=== PATIENT | male | born 1965 | race African-American/Black ===

== ENCOUNTER 2023-04-07 08:58 | Observation (INO) | payer MEDICARE, OTHER ==
[2023-04-07] MEDS ORDERED: NITROGLYCERIN SL TABS 0.4 MG TAB SUBLINGUAL STA (09:15)
[2023-04-07] MEDS ORDERED: SODIUM CHLORIDE 0.9% 1,000 ML IV STA (09:24)
[2023-04-07 09:33] LABS: Basophils % (A) 0 %; Eosinophils # (A) 0.1 k/uL (0-0.7); Eosinophils % (A) 4 %; HCT 40.5 % (39.0-53.0); HGB 12.9 gm/dL (13.0-17.5); Lymphocytes % (A) 33 %; MCH 27.4 pg (25.0-35.0); MCHC 31.9 g/dL (31.0-37.0); Mean Platelet Volume 8.9; Monocytes # (A) 0.2 k/uL (0-1.0); Monocytes % (A) 5 %; Neutrophils # (A) 1.7 k/uL (1.3-7.7); Neutrophils % (A) 55 %; Platelet Count 176 k/uL (150-450); RBC 4.71 m/uL (4.30-5.90); RDW 15.1 % (11.5-15.5); WBC 3.1 k/uL (3.8-10.6)
--- NOTE | 2023-04-07 09:35 | XR ---
EXAMINATION TYPE: XR chest 2V DATE OF EXAM: 04/07/2023 COMPARISON: NONE HISTORY: Shortness of breath TECHNIQUE: Frontal and lateral views of the chest are obtained. FINDINGS: Scattered senescent parenchymal changes noted. Hyperinflation compatible with COPD. No evidence for infiltrate. No evidence for atelectasis. Heart size is stable. Mediastinal structures are stable and grossly unremarkable. No evidence for hilar prominence. Degenerative changes dorsal spine. IMPRESSION: 1. No evidence for acute pulmonary disease.
--- NOTE | 2023-04-07 09:41 | ED ---
General Adult HPI - General Chief complaint: Chest Pain Stated complaint: Chest Pains Time Seen by Provider: 04/07/23 09:09 Source: patient, EMS, RN notes reviewed, old records reviewed Mode of arrival: EMS Limitations: no limitations - History of Present Illness Initial comments: Patient is a 57-year-old male with past medical history remarkable for coronary bypass presents emergency Department complaining of chest pain. Presents from [place]. Has a history of cocaine abuse, states he smokes it. States that this morning he woke up and had left-sided chest pain with radiation towards his left shoulder. Denies any nausea or vomiting. Denies any lightheadedness. EMS was called and he was administered aspirin as well as 2 nitroglycerin tablets without much improvement. States he had a stress test within the last year but is uncertain the results. Denies any other acute complaints at this time. States he is compliant with medications. Does take aspirin and Plavix. Presents for further evaluation at this time. - Related Data Home Medications Medication Instructions Recorded Confirmed Albuterol Inhaler [Ventolin Hfa 2 puff INHALATION RT-QID PRN 04/07/23 04/07/23 Inhaler] Ammonium Lactate Lotion 1 applic TOPICAL BID 04/07/23 04/07/23 [Lac-Hydrin 12% Lotion] Aspirin EC [Ecotrin] 325 mg PO ONCE PRN 04/07/23 04/07/23 Atorvastatin Calcium [Lipitor] 40 mg PO HS 04/07/23 04/07/23 Clopidogrel [Plavix] 75 mg PO DAILY 04/07/23 04/07/23 Empagliflozin [Jardiance] 10 mg PO DAILY 04/07/23 04/07/23 Famotidine 20 mg PO BID 04/07/23 04/07/23 Fluticasone/Vilanterol [Breo 1 puff INHALATION RT-DAILY 04/07/23 04/07/23 Ellipta 100-25 Mcg Inhaler] Insulin Glargine,Hum.rec.anlog 8 units SQ HS 04/07/23 04/07/23 [Lantus Solostar Pen] Losartan Potassium 100 mg PO DAILY 04/07/23 04/07/23 Nitroglycerin Sl Tabs [Nitrostat] 0.4 mg SUBLINGUAL ONCE PRN 04/07/23 04/07/23 Rivaroxaban [Xarelto] 20 mg PO DAILY 04/07/23 04/07/23 amLODIPine [Norvasc] 10 mg PO DAILY 04/07/23 04/07/23 carvediloL [Coreg] 3.125 mg PO BID-W/MEALS 04/07/23 04/07/23 Allergies Allergy/AdvReac Type Severity Reaction Status Date / Time No Known Allergies Allergy Verified 04/07/23 10:36 Review of Systems ROS Statement: Those systems with pertinent positive or pertinent negative responses have been documented in the HPI. Review of Systems: CONST: Denies fever EYES: Denies blurry vision ENT: Denies nasal congestion C/V: Endorses Chest pain RESP: Denies shortness of breath GI: Denies abdominal pain : Denies dysuria SKIN: Denies rash. MSK: Denies joint pain. NEURO: Denies headache ROS Other: All systems not noted in ROS Statement are negative. Past Medical History Past Medical History: Hyperlipidemia, Hypertension, Myocardial Infarction (SD), Renal Disease Additional Past Medical History / Comment(s): CKD stage 3 History of Any Multi-Drug Resistant Organisms: None Reported Past Surgical History: Orthopedic Surgery Additional Past Surgical History / Comment(s): triple bipass 11/30/2021 Past Psychological History: ADD/ADHD, Anxiety, Bipolar, Depression Smoking Status: Former smoker Past Alcohol Use History: Occasional Past Drug Use History: Cocaine, Marijuana General Exam - General Exam Comments Initial Comments: General: Appears in no acute distress. HEAD: Normal with no signs of head trauma. EYES: PERRLA, EOMI, conjunctiva normal, no discharge. ENT: Hearing grossly intact, normal oropharynx. RESPIRATORY: Clear breath sounds bilaterally. No wheezes, rales, or rhonchi. C/V: Regular rate and rhythm. S1 and S2 auscultated, no edema, peripheral pulses 2+ and intact throughout ABD: Abd is soft, nontender, nondistended EXT: Normal range of motion, no obvious deformity SKIN: No rashes or lesions observed on exposed skin. NEURO: Alert and oriented x 4. Limitations: no limitations Course Vital Signs 04/07/23 04/07/23 04/07/23 09:00 10:30 11:30 Temperature 97.8 F Pulse Rate 56 L 58 L 58 L Respiratory 18 15 14 Rate Blood Pressure 111/74 127/81 114/54 O2 Sat by Pulse 96 97 98 Oximetry 04/07/23 13:05 Temperature Pulse Rate 58 L Respiratory 18 Rate Blood Pressure 141/84 O2 Sat by Pulse 97 Oximetry Medical Decision Making - Medical Decision Making Was pt. sent in by a medical professional or institution (, [facility], HPLC CHEMIST, urgent care, hospital, or [facility]...) When possible be specific @ -No Did you speak to anyone other than the patient for history (EMS, parent, family, police, friend...)? What history was obtained from this source @ -No Did you review nursing and triage notes (agree or disagree)? Why? @ -I reviewed and agree with nursing and triage notes Were old charts reviewed (outside hosp., previous admission, EMS record, old EKG, old radiological studies, urgent care reports/EKG's, [facility] records)? Report findings @ -No old charts were reviewed Differential Diagnosis (chest pain, altered mental status, abdominal pain women, abdominal pain men, vaginal bleeding, weakness, fever, dyspnea, syncope, headache, dizziness, GI bleed, back pain, seizure, CVA, palpatations, mental health, musculoskeletal)? @ -Differential Chest Pain: Stable Angina, Unstable Angina, STEMI, NSTEMI Aortic Dissection, Pneumothorax, Musculoskeletal, Esophageal Spasm GERD, Cholecystitis, Pancreatitis, Zoster, this is not meant to be an all-inclusive list. EKG interpreted by me (3pts min.). @ -As above X-rays interpreted by me (1pt min.). @ -Chest x-ray reveals no obvious of acute cardiopulmonary process. CT interpreted by me (1pt min.). @ -None done U/S interpreted by me (1pt. min.). @ -None done What testing was considered but not performed or refused? (CT, X-rays, U/S, labs)? Why? @ -None What meds were considered but not given or refused? Why? @ -None Did you discuss the management of the patient with other professionals (professionals i.e. [facility] Ovalles, HPLC CHEMIST, lab, RT, psych nurse, manager social work, tin stacker, teacher, chief analytics officer, watch caser)? Give summary @ -I spoke with the admitting team, Brittany of [facility] who accepted the patient. Was smoking cessation discussed for >3mins.? @ -No Was critical care preformed (if so, how long)? @ -No Were there social determinants of health that impacted care today? How? (Homelessness, low income, unemployed, alcoholism, drug addiction, transportation, low edu. Level, literacy, decrease access to med. care, senior living, rehab)? @ -No Was there de-escalation of care discussed even if they declined (Discuss DNR or withdrawal of care, Hospice)? DNR status @ -No What co-morbidities impacted this encounter? (DM, HTN, Smoking, COPD, CAD, Cancer, CVA, ARF, Chemo, Hep., AIDS, mental health diagnosis, sleep apnea, morbid obesity)? @ -None Was patient admitted / discharged? Hospital course, mention meds given and route, prescriptions, significant lab abnormalities, going to OR and other pertinent info. @ -Based on the patient's presentation and physical exam, presents for left- sided chest pain. Does have significant cardiac history of coronary bypass. We will obtain cardiac labs. He already received 2 sublingual nitroglycerin tablets and we will administer 2 additional to assess for any improvement. Patient already received 324 mg of aspirin from EMS. Vital signs are within acceptable limits. He is resting comfortably. Patient in agreement this plan. EKG showed no signs of acute ischemia. Chest x-ray reveals no obvious acute cardio pulmonary process.His laboratory studies remarkable for an undetectable troponin. Reevaluation, nitroglycerin did nothing for his chest pain. We'll administer morphine. Morphine did seem to help. I discussed his workup with him. Hipolito tineo's heart score is moderate and therefore we will obtain a cardiac consult, admit the patient for further evaluation. He was in agreement this plan. I spoke with the admitting team, Brittany of [facility] who accepted the patient. Undiagnosed new problem with uncertain prognosis? @ -No Drug Therapy requiring intensive monitoring for toxicity (Heparin, Nitro, Insulin, Cardizem)? @ -No Were any procedures done? @ -No Diagnosis/symptom? @ -Chest pain Acute, or Chronic, or Acute on Chronic? @ -Acute Uncomplicated (without systemic symptoms) or Complicated (systemic symptoms)? @ -Complicated Side effects of treatment? @ -none Exacerbation, Progression, or Severe Exacerbation] @ -no Poses a threat to life or bodily function? @ -Potentially, yes - Lab Data Result diagrams: 04/07/23 09:17 12/14/23 09:17 Lab Results 04/07/23 04/07/23 04/07/23 Range/Units 09:17 09:17 09:17 WBC 3.1 L (3.8-10.6) k/uL RBC 4.71 (4.30-5.90) m/uL Hgb 12.9 L (13.0-17.5) gm/dL Hct 40.5 (39.0-53.0) % MCV 86.0 (80.0-100.0) fL MCH 27.4 (25.0-35.0) pg MCHC 31.9 (31.0-37.0) g/dL RDW 15.1 (11.5-15.5) % Plt Count 176 (150-450) k/uL MPV 8.9 Neutrophils % 55 % Lymphocytes % 33 % Monocytes % 5 % Eosinophils % 4 % Basophils % 0 % Neutrophils # 1.7 (1.3-7.7) k/uL Lymphocytes # 1.0 (1.0-4.8) k/uL Monocytes # 0.2 (0-1.0) k/uL Eosinophils # 0.1 (0-0.7) k/uL Basophils # 0.0 (0-0.2) k/uL PT 11.8 (10.0-12.5) sec INR 1.1 (<1.2) APTT 28.6 (22.0-30.0) sec Sodium 138 (137-145) mmol/L Potassium 4.0 (3.5-5.1) mmol/L Chloride 102 (98-107) mmol/L Carbon Dioxide 26 (22-30) mmol/L Anion Gap 10 mmol/L BUN 12 (9-20) mg/dL Creatinine 0.98 (0.66-1.25) mg/dL Est GFR (CKD-EPI)AfAm >90 (>60 ml/min/1.73 sqM) Est GFR (CKD-EPI)NonAf 87 (>60 ml/min/1.73 sqM) Glucose 146 H (74-99) mg/dL Calcium 9.4 (8.4-10.2) mg/dL Magnesium 2.0 (1.6-2.3) mg/dL Total Bilirubin 0.4 (0.2-1.3) mg/dL AST 22 (17-59) U/L ALT 24 (4-49) U/L Alkaline Phosphatase 72 (38-126) U/L Troponin I (0.000-0.034) ng/mL Total Protein 6.7 (6.3-8.2) g/dL Albumin 3.8 (3.5-5.0) g/dL Lipase 211 (23-300) U/L 04/07/23 Range/Units 09:17 WBC (3.8-10.6) k/uL RBC (4.30-5.90) m/uL Hgb (13.0-17.5) gm/dL Hct (39.0-53.0) % MCV (80.0-100.0) fL MCH (25.0-35.0) pg MCHC (31.0-37.0) g/dL RDW (11.5-15.5) % Plt Count (150-450) k/uL MPV Neutrophils % % Lymphocytes % % Monocytes % % Eosinophils % % Basophils % % Neutrophils # (1.3-7.7) k/uL Lymphocytes # (1.0-4.8) k/uL Monocytes # (0-1.0) k/uL Eosinophils # (0-0.7) k/uL Basophils # (0-0.2) k/uL PT (10.0-12.5) sec INR (<1.2) APTT (22.0-30.0) sec Sodium (137-145) mmol/L Potassium (3.5-5.1) mmol/L Chloride (98-107) mmol/L Carbon Dioxide (22-30) mmol/L Anion Gap mmol/L BUN (9-20) mg/dL Creatinine (0.66-1.25) mg/dL Est GFR (CKD-EPI)AfAm (>60 ml/min/1.73 sqM) Est GFR (CKD-EPI)NonAf (>60 ml/min/1.73 sqM) Glucose (74-99) mg/dL Calcium (8.4-10.2) mg/dL Magnesium (1.6-2.3) mg/dL Total Bilirubin (0.2-1.3) mg/dL AST (17-59) U/L ALT (4-49) U/L Alkaline Phosphatase (38-126) U/L Troponin I <0.012 (0.000-0.034) ng/mL Total Protein (6.3-8.2) g/dL Albumin (3.5-5.0) g/dL Lipase (23-300) U/L - EKG Data -: EKG Interpreted by Me EKG Comments: 12-lead Electrocardiogram Interpretation Note EKG was reviewed and interpreted by myself. 12-lead ECG performed at 090 to is interpreted by me as revealing sinus bradycardia at a rate of 57 beats per minute. [place] is normal. IN interval is 166 ms, QRS duration is 94 ms, QTc is 435 ms.. There were no ST or T wave abnormalities to suggest myocardial ischemia or injury. R wave progression across the precordium was satisfactory. By my interpretation this EKG is non-diagnostic for acute ischemia. No prior EKG for comparison. Disposition Clinical Impression: Chest pain Disposition: ADMITTED IP TO THIS HOSP Condition: Stable Time of Disposition: 10:42
[2023-04-07 10:04] LABS: INR 1.1 (<1.2); Partial Thromboplastin Time 28.6 sec (22.0-30.0); Prothrombin Time 11.8 sec (10.0-12.5)
[2023-04-07] MEDS ORDERED: MORPHINE SULFATE 4 MG/ML SYRINGE IVP STA (10:05)
[2023-04-07 10:22] LABS: ALT 24 U/L (4-49); AST 22 U/L (17-59); African American GFR (CKD) >90 (>60 ml/min/1.73 sqM); Albumin 3.8 g/dL (3.5-5.0); Alkaline Phosphatase 72 U/L (38-126); Anion Gap 10 mmol/L; Blood Urea Nitrogen 12 mg/dL (9-20); Calcium 9.4 mg/dL (8.4-10.2); Carbon Dioxide 26 mmol/L (22-30); Chloride 102 mmol/L (98-107); Glucose 146 mg/dL (74-99); Lipase 211 U/L (23-300); Non-African American GFR(CKD) 87 (>60 ml/min/1.73 sqM); Sodium 138 mmol/L (137-145); Total Bilirubin 0.4 mg/dL (0.2-1.3); Total Protein 6.7 g/dL (6.3-8.2)
[2023-04-07] MEDS ORDERED: NALOXONE 0.4 MG/ML 1 ML VIAL IV PRN (10:54)
[2023-04-07] MEDS ORDERED: MORPHINE SULFATE 4 MG/ML SYRINGE IV PRN (10:54)
[2023-04-07] MEDS ORDERED: ALBUTEROL NEBULIZED 2.5 MG/3 ML INHALATION PRN (11:45)
[2023-04-07] MEDS ORDERED: NITROGLYCERIN SL TABS 0.4 MG TAB SUBLINGUAL PRN (11:45)
[2023-04-07] MEDS ORDERED: HEPARIN SODIUM 1,000 UN/ML (10ML VL) IV ONE (11:47)
--- NOTE | 2023-04-07 11:58 | P.HPIM ---
History of Present Illness 56-year-old pleasant male came in the with complaints of chest pain radiating to the left arm and neck area. Patient does have history of cocaine abuse last cocaine use was 2 days ago but patient started having chest pain today morning. Patient was is coming from [facility]. Patient does have history of coronary artery disease CABG in the past stents 3 times in the past recent one less than 1 year ago. Patient does have history of atrial fibrillation on 0 alto as per the patient patient does have history of heart failure denied any shortness of breath, orthopnea proximal nocturnal dyspnea. Patient was given as pirin and nitroglycerin with the some improvement in the pain patient pain is exertional associated lightheadedness denied any diaphoresis not associated with food nonpleuritic in nature. Patient is supposed to get a stress test at [facility] where his K was none of the records are available in the system at this time. EKG showed a sinus rhythm with nonspecific ST-T wave changes. 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 REVIEW OF SYSTEMS: CONSTITUTIONAL: No fever, no malaise, no fatigue. HEENT: No recent visual problems or hearing problems. Denied any sore throat. CARDIOVASCULAR: No orthopnea, PND, no palpitations, no syncope. PULMONARY: No shortness of breath, no cough, no hemoptysis. GASTROINTESTINAL: No diarrhea, no nausea, no vomiting, no abdominal pain. NEUROLOGICAL: No headaches, no weakness, no numbness. HEMATOLOGICAL: Denies any bleeding or petechiae. GENITOURINARY: Denies any burning micturition, frequency, or urgency. MUSCULOSKELETAL/RHEUMATOLOGICAL: Denies any joint pain, swelling, or any muscle pain. ENDOCRINE: Denies any polyuria or polydipsia. The rest of the 14-point review of systems is negative. PHYSICAL EXAMINATION: GENERAL: The patient is alert and oriented x3, not in any acute distress. Well developed, well nourished. HEENT: Pupils are round and equally reacting to light. EOMI. No scleral icterus. No conjunctival pallor. Normocephalic, atraumatic. No pharyngeal erythema. No thyromegaly. CARDIOVASCULAR: S1 and S2 present. No murmurs, rubs, or gallops. PULMONARY: Chest is clear to auscultation, no wheezing or crackles. ABDOMEN: Soft, nontender, nondistended, normoactive bowel sounds. No palpable organomegaly. MUSCULOSKELETAL: No joint swelling or deformity. EXTREMITIES: No cyanosis, clubbing, or pedal edema. NEUROLOGICAL: Gross neurological examination did not reveal any focal deficits. SKIN: No rashes. Assessment and plan -Chest pain possibly of unstable angina. Repeat 2 more sets of troponins and EKGs etiology will evaluate the patient patient probably will need a stress test -History of coronary artery disease and CABG in the past patient will be resumed on Plavix patient will be switched to IV heparin, hold off Xarelto. -History of congestive heart failure ejection fraction is not known patient is euvolemic at this time will hold off any IV fluids at this time -Atrial fibrillation proximal presently sinus rhythm next line-cocaine use patient wanted to quit cocaine and didn't use cocaine for last couple days cocaine may not be contributing to his chest pain will obtain urine drug screen -Hypertension DVT prophylaxis: Patient is on IV heparin at this time Past Medical History Past Medical History: Hyperlipidemia, Hypertension, Myocardial Infarction (CT), Renal Disease Additional Past Medical History / Comment(s): CKD stage 3 History of Any Multi-Drug Resistant Organisms: None Reported Past Surgical History: Orthopedic Surgery Additional Past Surgical History / Comment(s): triple bipass 11/30/2021 Past Psychological History: ADD/ADHD, Anxiety, Bipolar, Depression Smoking Status: Former smoker Past Alcohol Use History: Occasional Past Drug Use History: Cocaine, Marijuana Medications and Allergies Home Medications Medication Instructions Recorded Confirmed Type Albuterol Inhaler [Ventolin Hfa 2 puff INHALATION RT-QID PRN 04/07/23 04/07/23 History Inhaler] Ammonium Lactate Lotion 1 applic TOPICAL BID 04/07/23 04/07/23 History [Lac-Hydrin 12% Lotion] Aspirin EC [Ecotrin] 325 mg PO ONCE PRN 04/07/23 04/07/23 History Atorvastatin Calcium [Lipitor] 40 mg PO HS 04/07/23 04/07/23 History Clopidogrel [Plavix] 75 mg PO DAILY 04/07/23 04/07/23 History Empagliflozin [Jardiance] 10 mg PO DAILY 04/07/23 04/07/23 History Famotidine 20 mg PO BID 04/07/23 04/07/23 History Fluticasone/Vilanterol [Breo 1 puff INHALATION RT-DAILY 04/07/23 04/07/23 History Ellipta 100-25 Mcg Inhaler] Insulin Glargine,Hum.rec.anlog 8 units SQ HS 04/07/23 04/07/23 History [Lantus Solostar Pen] Losartan Potassium 100 mg PO DAILY 04/07/23 04/07/23 History Nitroglycerin Sl Tabs [Nitrostat] 0.4 mg SUBLINGUAL ONCE PRN 04/07/23 04/07/23 History Rivaroxaban [Xarelto] 20 mg PO DAILY 04/07/23 04/07/23 History amLODIPine [Norvasc] 10 mg PO DAILY 04/07/23 04/07/23 History carvediloL [Coreg] 3.125 mg PO BID-W/MEALS 04/07/23 04/07/23 History Allergies Allergy/AdvReac Type Severity Reaction Status Date / Time No Known Allergies Allergy Verified 04/07/23 10:36 Physical Exam Vitals: Vital Signs Temp Pulse Resp BP Pulse Ox 04/07/23 11:30 58 L 14 114/54 98 04/07/23 10:30 58 L 15 127/81 97 04/07/23 09:00 97.8 F 56 L 18 111/74 96 Intake and Output 04/06/23 04/07/23 04/07/23 22:59 06:59 14:59 Other: Weight 97.069 kg Results CBC & Chem 7: 04/07/23 09:17 04/07/23 09:17 Labs: Abnormal Lab Results - Last 24 Hours (Table) 04/07/23 04/07/23 Range/Units 09:17 09:17 WBC 3.1 L (3.8-10.6) k/uL Hgb 12.9 L (13.0-17.5) gm/dL Glucose 146 H (74-99) mg/dL
[2023-04-07] MEDS ORDERED: HEPARIN SOD,PORK IN 0.45% NACL 25,000 UNIT in 0.45% NACL 1 250ML.BAG IV SCH (12:00)
[2023-04-07 13:04] LABS: INR 1.1 (<1.2); Partial Thromboplastin Time 27.6 sec (22.0-30.0); Prothrombin Time 11.4 sec (10.0-12.5)
[2023-04-07] MEDS: CLOPIDOGREL 75 MG TAB PO SCH (13:08)
[2023-04-07] MEDS: carvediloL 3.125 MG TAB PO SCH ×2 (13:08→18:12)
[2023-04-07] MEDS: LOSARTAN 50 MG TAB PO SCH (14:40)
[2023-04-07] MEDS ORDERED: HEPARIN SODIUM,PORCINE 5,000 UNIT/ML 1 ML VIAL SQ SCH (16:00)
[2023-04-07] MEDS ORDERED: HEPARIN SODIUM 1,000 UN/ML (10ML VL) IV PRN (20:48)
[2023-04-07 20:59] LABS: Urine Alcohol Negative (Negative); Urine Barbiturate Negative (Negative); Urine Cocaine Negative (Negative); Urine Methadone Negative (Negative); Urine Opiates Positive (Negative); Urine Phencyclidine Negative (Negative)
[2023-04-07 21:12] LABS: Glucose,Whole Blood 113 mg/dL (70-110)
[2023-04-07] MEDS: FAMOTIDINE 20 MG TAB PO SCH (21:22)
[2023-04-07] MEDS: ATORVASTATIN 40 MG TAB PO SCH (21:22)
[2023-04-07] MEDS: INSULIN DETEMIR (LEVEMIR) 100 UNIT/ML SYR SQ SCH (21:27)
[2023-04-08 02:30] LABS: Basophils % (A) 1 %; Eosinophils # (A) 0.1 k/uL (0-0.7); Eosinophils % (A) 3 %; HCT 41.7 % (39.0-53.0); HGB 13.4 gm/dL (13.0-17.5); Lymphocytes # (A) 1.6 k/uL (1.0-4.8); Lymphocytes % (A) 44 %; MCH 27.7 pg (25.0-35.0); MCHC 32.2 g/dL (31.0-37.0); MCV 86.1 fL (80.0-100.0); Mean Platelet Volume 9.3; Monocytes # (A) 0.2 k/uL (0-1.0); Monocytes % (A) 7 %; Neutrophils # (A) 1.5 k/uL (1.3-7.7); Neutrophils % (A) 43 %; Platelet Count 179 k/uL (150-450); RBC 4.85 m/uL (4.30-5.90); RDW 15.2 % (11.5-15.5); WBC 3.6 k/uL (3.8-10.6)
[2023-04-08 02:44] LABS: INR 0.9 (<1.2); Prothrombin Time 10.4 sec (10.0-12.5)
[2023-04-08 03:16] LABS: African American GFR (CKD) 78 (>60 ml/min/1.73 sqM); Anion Gap 12 mmol/L; Blood Urea Nitrogen 14 mg/dL (9-20); Calcium 9.2 mg/dL (8.4-10.2); Carbon Dioxide 24 mmol/L (22-30); Chloride 101 mmol/L (98-107); Glucose 119 mg/dL (74-99); Non-African American GFR(CKD) 67 (>60 ml/min/1.73 sqM); Potassium 3.7 mmol/L (3.5-5.1); Sodium 137 mmol/L (137-145)
[2023-04-08 06:08] LABS: Glucose,Whole Blood 119 mg/dL (70-110)
[2023-04-08] MEDS: SYMBICORT 80-4.5 MCG INHALER INHALATION SCH ×2 (08:30→20:19)
[2023-04-08] MEDS ORDERED: NITROGLYCERIN OINT 1 INCH/GM PACKET TOPICAL STA (08:58)
[2023-04-08] MEDS ORDERED: amLODIPine 10 MG TAB PO SCH (09:00)
[2023-04-08] MEDS: LOSARTAN 50 MG TAB PO SCH (09:29)
[2023-04-08] MEDS: carvediloL 3.125 MG TAB PO SCH ×2 (09:30→18:07)
[2023-04-08] MEDS: CLOPIDOGREL 75 MG TAB PO SCH (09:30)
[2023-04-08] MEDS: FAMOTIDINE 20 MG TAB PO SCH ×2 (09:30→20:10)
[2023-04-08] MEDS: DAPAGLIFLOZIN PROPANEDIOL 5 MG TABLET PO SCH (09:39)
--- NOTE | 2023-04-08 10:23 | CA ---
Transthoracic Echo Report Name: Jaime Sosa Age: 57 Gender: M : 1965 Exam Date: 04/07/2023 16:09 Exam Location: [facility] Ht (in): 73 Wt (lb): 214 Ordering Physician: Nicola Garcia MD Attending/Referring Phys: Mold Runner Procedure CPT: Indications: Chest Pain Cardiac Hx: Technical Quality: Good Contrast 1: Total Dose (mL): Contrast 2: Total Dose (mL): MEASUREMENTS (Male / Female) Normal Values 2D ECHO LV Diastolic Diameter PLAX 5.1 cm 4.2 - 5.9 / 3.9 - 5.3 cm LV Systolic Diameter PLAX 3.8 cm IVS Diastolic Thickness 1.5 cm 0.6 - 1.0 / 0.6 - 0.9 cm LVPW Diastolic Thickness 1.6 cm 0.6 - 1.0 / 0.6 - 0.9 cm LV Relative Wall Thickness 0.6 RV Internal Dim ED PLAX 4.2 cm LVOT Diameter 2.1 cm Aortic Root Diameter 2.9 cm LA Systolic Diameter LX 3.2 cm 3.0 - 4.0 / 2.7 - 3.8 cm LV Diastolic Volume MOD 4C 97.2 cm??? LV Systolic Volume MOD 4C 40.0 cm??? LV Ejection Fraction MOD 4C 58.8 % LV Cardiac Index MOD 4C 1420.1 cm???/min???m??? LV Diastolic Length 4C 7.8 cm LV Systolic Length 4C 6.8 cm LA Volume 78.7 cm??? 18 - 58 / 22 - 52 cm??? LA Volume Index 34.9 cm???/m??? 16 - 28 cm???/m??? Ascending Aorta Diameter 3.0 cm DOPPLER AV Peak Velocity 150.7 cm/s AV Peak Gradient 9.1 mmHg AI Peak Velocity 141.8 cm/s AI Peak Gradient 8.0 mmHg AI Pressure Half Time 605.3 ms LVOT Peak Velocity 92.0 cm/s LVOT Peak Gradient 3.4 mmHg LVOT Velocity Time Integral 19.5 cm LVOT Stroke Volume 69.9 cm??? LVOT Stroke Volume Index 31.6 ml/m??? LVOT Cardiac Index 1738.4 cm???/min???m??? AV Area Cont Eq pk 2.2 cm??? MV Peak Velocity 66.5 cm/s MV Peak Gradient 1.8 mmHg MV Mean Velocity 30.5 cm/s MV Mean Gradient 0.5 mmHg MV Velocity Time Integral 28.2 cm MR Peak Velocity 445.8 cm/s MR Peak Gradient 79.5 mmHg Mitral E Point Velocity 84.2 cm/s Mitral A Point Velocity 55.6 cm/s Mitral E to A Ratio 1.5 MV Deceleration Time 310.3 ms MV E' Velocity 8.1 cm/s Mitral E to MV E' Ratio 10.4 TR Peak Velocity 184.8 cm/s TR Peak Gradient 13.7 mmHg Right Ventricular Systolic Press 19.0 mmHg PV Peak Velocity 122.9 cm/s PV Peak Gradient 6.0 mmHg FINDINGS Left Ventricle Moderately increased septal wall thickness. Normal LV size. Left ventricular ejection fraction is estimated at 55-60 %. Right Ventricle Normal right ventricular size. Right Atrium Mild LA dilatation Left Atrium Mild LA dilatation Mitral Valve Structurally normal mitral valve. Moderate MR. Aortic Valve Trileaflet aortic valve. Mild AI. Tricuspid Valve Structurally normal tricuspid valve. Trace TR. Pulmonic Valve Pulmonic valve not well visualized. Mild PI. Pericardium Normal pericardium. Aorta Normal size aortic root and proximal ascending aorta. CONCLUSIONS LVEF 55-60% Moderate concentric LVH No obvious regional wall motion abnormality RVSP is not elevated Mild biatrial dilatation Previewed by: Dr Alhaji Cuevas (Electronically Signed) Final Date: 08 April 2023 10:22
--- NOTE | 2023-04-08 11:36 | P.CRDCN ---
History of Present Illness Consult date: 04/08/23 Consult reason: chest pain History of present illness: History of present illness: This is a 57-year-old male with past medical history coronary artery disease with 3 vessel CABG in November 2021 followed by stenting done earlier this year for total of 4 stents--details are not available, hypertension, hyperlipidemia, paroxysmal atrial fibrillation, diabetes mellitus insulin requiring, cocaine abuse. We have been asked to evaluate patient for chest pain. Patient resides in [facility] and comes to [facility] from [place] [facility]. 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 Patient states he has problem with cocaine and admitted himself to [place] [facility]. His last cocaine use was 3 days ago and he denies having any chest pain with use. He has a history of tobacco use and quit. Patient presented with complaints of left-sided sharp chest pain that started yesterday and is constant. It is worse with deep breathing. He also states that most the back of his arm and the back of his neck. It is worse with movement as well. He also complains of cough and shortness of breath with lightheadedness and dizziness. He states he has been taking all of his medications as directed. Sinus rhythm with LVH Patient has been started on a heparin drip. EKG sinus rhythm with LVH Chest x-ray: No acute process WBC 3.6, hemoglobin 13.4. INR 0.9. Electrolytes and renal function normal. Blood sugar 119. Troponin negative 3. Urine drug screen positive for opiates. Home cardiac medications: Amlodipine 10 mg daily, aspirin 325 mg when necessary, atorvastatin 40 mg at bedtime, Coreg 3.125 mg twice daily, Plavix 75 mg daily, losartan 100 mg daily, Nitrostat as needed, Xarelto 20 mg daily, patient also on Jardiance 10 mg daily. Echocardiogram performed 04/07 reveals EF 55-60%, moderate concentric left hypertrophy, no obvious regional wall motion abnormality. RVSP not elevated, mild biatrial dilatation. Review Of Systems: At the time of my exam: CONSTITUTIONAL: Denies fever or chills. CARDIOVASCULAR: Denies chest pain, Denies shortness of breath, no orthopnea, PND or palpitations. RESPIRATORY: Denies cough. GASTROINTESTINAL: Denies abdominal pain, diarrhea, constipation, nausea or vomiting. MUSCULOSKELETAL: Denies myalgias. NEUROLOGIC: Denies numbness, tingling or weakness. ENDOCRINE: Denies fatigue, weight change, polydipsia or polyurina. GENITOURINARY: Denies burning, hematuria or urgency with micturation. HEMATOLOGIC: Denies history of anemia or bleeding. Physical examination: Gen: This is a 57-year-old black male resting in bed in no acute distress VS: reviewed HEENT: Head is atraumatic, normocephalic. Pupils equal, round. Sclerae is anicteric. NECK: Supple. No JVD. LUNGS: Clear to auscultation. No wheezes or rhonchi. No intercostal retractions. HEART: Regular rate and rhythm. Fixed S2. No murmur. ABDOMEN: Soft No tenderness. EXTREMITIES: No pedal edema. No calf tenderness. NEUROLOGICAL: Patient is awake, alert and oriented x3. Assessment: Chest pain, acute coronary syndrome ruled out Coronary artery disease status post 3 vessel CABG and 4 stents Hypertension Hyperlipidemia Paroxysmal atrial fibrillation Diabetes mellitus insulin requiring Cocaine abuse Plan: Continue patient's home cardiac medications Discontinue heparin drip Discontinue IV fluids Apply Nitropaste 1 and evaluate chest pain. The chest pain is resolved with Nitropaste, plan to start patient on him nor Obtain results of stress test performed last week Further recommendations to follow based upon clinical course Thank you kindly for this consultation. Nurse practitioner note has been reviewed, I agree with documented findings and plan of care. Patient was seen and examined. Past Medical History Past Medical History: Atrial Fibrillation, Asthma, Chest Pain / Angina, Heart Failure, Diabetes Mellitus, Deep Vein Thrombosis (DVT), GERD/Reflux, Hyperlipidemia, Hypertension, Myocardial Infarction ([place]), Renal Disease Additional Past Medical History / Comment(s): CKD stage 3,chf, left left dvt 2019. bronchitis,glaucoma Last Myocardial Infarction Date:: 10/2021 History of Any Multi-Drug Resistant Organisms: None Reported Past Surgical History: Heart Catheterization With Stent, Orthopedic Surgery Additional Past Surgical History / Comment(s): triple bipass 11/30/2021, heart cath with 4 stents 06/2022, left wrist sx. left achilles tendon, right shoulder sx. Past Anesthesia/Blood Transfusion Reactions: No Reported Reaction Date of Last Stent Placement:: 06/2022 Past Psychological History: ADD/ADHD, Anxiety, Bipolar, Depression Smoking Status: Former smoker Past Alcohol Use History: Occasional Past Drug Use History: Cocaine, Marijuana Additional Drug Use History / Comment(s): last heroin use was 3 years ago, cocaine use was 04/05/23, THc use 03/31/23 - Past Family History Father Family Medical History: Diabetes Mellitus Additional Family Medical History / Comment(s): heart problems Mother Family Medical History: Diabetes Mellitus Additional Family Medical History / Comment(s): heart problems Medications and Allergies Home Medications Medication Instructions Recorded Confirmed Type Albuterol Inhaler [Ventolin Hfa 2 puff INHALATION RT-QID PRN 04/07/23 04/07/23 History Inhaler] Ammonium Lactate Lotion 1 applic TOPICAL BID 04/07/23 04/07/23 History [Lac-Hydrin 12% Lotion] Aspirin EC [Ecotrin] 325 mg PO ONCE PRN 04/07/23 04/07/23 History Atorvastatin Calcium [Lipitor] 40 mg PO HS 04/07/23 04/07/23 History Clopidogrel [Plavix] 75 mg PO DAILY 04/07/23 04/07/23 History Empagliflozin [Jardiance] 10 mg PO DAILY 04/07/23 04/07/23 History Famotidine 20 mg PO BID 04/07/23 04/07/23 History Fluticasone/Vilanterol [Breo 1 puff INHALATION RT-DAILY 04/07/23 04/07/23 Hist ory Ellipta 100-25 Mcg Inhaler] Insulin Glargine,Hum.rec.anlog 8 units SQ HS 04/07/23 04/07/23 History [Lantus Solostar Pen] Losartan Potassium 100 mg PO DAILY 04/07/23 04/07/23 History Nitroglycerin Sl Tabs [Nitrostat] 0.4 mg SUBLINGUAL ONCE PRN 04/07/23 04/07/23 History Rivaroxaban [Xarelto] 20 mg PO DAILY 04/07/23 04/07/23 History amLODIPine [Norvasc] 10 mg PO DAILY 04/07/23 04/07/23 History carvediloL [Coreg] 3.125 mg PO BID-W/MEALS 04/07/23 04/07/23 History Allergies Allergy/AdvReac Type Severity Reaction Status Date / Time No Known Allergies Allergy Verified 04/07/23 10:36 Physical Exam Vitals: Vital Signs Temp Pulse Pulse Resp BP BP Pulse Ox 04/08/23 08:49 54 L 04/08/23 08:31 50 L 95 04/08/23 07:00 97.6 F 50 L 12 120/75 98 04/08/23 01:15 97.7 F 54 L 16 124/72 99 04/07/23 20:15 98.4 F 57 L 16 123/76 99 04/07/23 20:03 62 18 128/82 98 04/07/23 18:14 97.7 F 54 L 17 130/83 98 04/07/23 14:39 64 18 136/86 96 04/07/23 13:05 58 L 18 141/84 97 04/07/23 11:30 58 L 14 114/54 98 04/07/23 10:30 58 L 15 127/81 97 04/07/23 09:00 97.8 F 56 L 18 111/74 96 FiO2 04/08/23 08:49 04/08/23 08:31 21 04/08/23 07:00 04/08/23 01:15 04/07/23 20:15 04/07/23 20:03 04/07/23 18:14 04/07/23 14:39 04/07/23 13:05 04/07/23 11:30 04/07/23 10:30 04/07/23 09:00 Intake and Output 04/07/23 04/08/23 04/08/23 22:59 06:59 14:59 Intake Total 77.5 72.8 Output Total 750 Balance 77.5 -677.2 Intake: Intake, IV Titration 77.5 72.8 Amount Heparin Sod,Pork in 0.45% 77.5 72.8 NaCl 25,000 unit In 0.45 % NaCl 1 250ml.bag @ 10. 302 UNITS/KG/HR 10 mls/hr IV .Q24H [facility] Rx#: [id number] Output: Urine 750 Other: # Voids 1 Weight 97.069 kg Results 04/08/23 02:19 04/08/23 02:19 Cardiac Enzymes 04/07/23 04/07/23 04/07/23 Range/Units 09:17 09:17 11:39 AST 22 (17-59) U/L Troponin I <0.012 <0.012 (0.000-0.034) ng/mL 04/07/23 Range/Units 14:51 AST (17-59) U/L Troponin I <0.012 (0.000-0.034) ng/mL Coagulation 04/07/23 04/07/23 04/07/23 Range/Units 09:17 11:59 17:26 PT 11.8 11.4 (10.0-12.5) sec APTT 28.6 27.6 41.1 H (22.0-30.0) sec 04/07/23 04/08/23 04/08/23 Range/Units 20:03 02:19 02:19 PT 10.4 (10.0-12.5) sec APTT 34.4 H 58.4 H (22.0-30.0) sec CBC 04/07/23 04/08/23 Range/Units 09:17 02:19 WBC 3.1 L 3.6 L (3.8-10.6) k/uL RBC 4.71 4.85 (4.30-5.90) m/uL Hgb 12.9 L 13.4 (13.0-17.5) gm/dL Hct 40.5 41.7 (39.0-53.0) % Plt Count 176 179 (150-450) k/uL Comprehensive Metabolic Panel 04/07/23 04/08/23 Range/Units 09:17 02:19 Sodium 138 137 (137-145) mmol/L Potassium 4.0 3.7 (3.5-5.1) mmol/L Chloride 102 101 (98-107) mmol/L Carbon Dioxide 26 24 (22-30) mmol/L BUN 12 14 (9-20) mg/dL Creatinine 0.98 1.21 (0.66-1.25) mg/dL Glucose 146 H 119 H (74-99) mg/dL Calcium 9.4 9.2 (8.4-10.2) mg/dL AST 22 (17-59) U/L ALT 24 (4-49) U/L Alkaline Phosphatase 72 (38-126) U/L Total Protein 6.7 (6.3-8.2) g/dL Albumin 3.8 (3.5-5.0) g/dL Current Medications Generic Name Dose Route Start Last Admin Trade Name Freq PRN Reason Stop Dose Admin Albuterol Sulfate 2.5 mg 04/07/23 11:45 04/08/23 08:30 Albuterol Nebulized 2.5 Mg/3 Ml INHALATION 2.5 mg RT-QID PRN Administration Shortness Of Breath Atorvastatin Calcium 40 mg 04/07/23 21:00 04/07/23 21:22 Atorvastatin 40 Mg Tab PO 40 mg HS ANKUR Administration Budesonide/Formoterol Fumarate 2 puff 04/08/23 08:00 04/08/23 08:30 Symbicort 80-4.5 Mcg Inhaler INHALATION 2 puff RT-BID ANKUR Administration Carvedilol 3.125 mg 04/07/23 11:45 04/07/23 18:12 Carvedilol 3.125 Mg Tab PO 3.125 mg BID-W/MEALS ANKUR Administration Clopidogrel Bisulfate 75 mg 04/07/23 12:00 04/07/23 13:08 Clopidogrel 75 Mg Tab PO 75 mg DAILY ANKUR Administration Dapagliflozin 5 mg 04/08/23 09:00 Dapagliflozin Propanediol 5 Mg Tablet PO DAILY ANKUR Famotidine 20 mg 04/07/23 21:00 04/07/23 21:22 Famotidine 20 Mg Tab PO 20 mg BID ANKUR Administration Heparin Sodium (Porcine) 0 unit 04/07/23 20:48 04/07/23 21:00 Heparin Sodium 1,000 Un/Ml (10ml Vl) IV 4,000 unit PER PROTOCOL PRN Administration Low PTT Protocol Heparin Sodium/Sodium Chloride 250 mls @ 10 mls/hr 04/07/23 12:00 04/08/23 02:30 25,000 unit/ Sodium Chloride IV 13.39 units/kg/hr .Q24H [facility] 13 mls/hr Titration Protocol 10.302 UNITS/KG/HR Insulin Detemir 8 unit 04/07/23 21:00 04/07/23 21:27 Insulin Detemir (Levemir) 100 Unit/Ml Syr SQ 8 unit HS ANKUR Administration Losartan Potassium 100 mg 04/07/23 12:00 04/07/23 14:40 Losartan 50 Mg Tab PO 100 mg DAILY ANKUR Administration Morphine Sulfate 4 mg 04/07/23 10:54 Morphine Sulfate 4 Mg/Ml Syringe IV Q4HR PRN Severe Pain (Scale 7 to 10) Nitroglycerin 0.4 mg 04/07/23 11:45 Nitroglycerin Sl Tabs 0.4 Mg Tab SUBLINGUAL ONCE PRN Chest Pain Intake and Output 04/07/23 04/08/23 04/08/23 22:59 06:59 14:59 Intake Total 77.5 72.8 Output Total 750 Balance 77.5 -677.2 Intake: Intake, IV Titration 77.5 72.8 Amount Heparin Sod,Pork in 0.45% 77.5 72.8 NaCl 25,000 unit In 0.45 % NaCl 1 250ml.bag @ 10. 302 UNITS/KG/HR 10 mls/hr IV .Q24H [facility] Rx#: [id number] Output: Urine 750 Other: # Voids 1 Weight 97.069 kg 04/08/23 02:19 04/08/23 02:19
[2023-04-08 12:26] LABS: Glucose,Whole Blood 166 mg/dL (70-110)
[2023-04-08] MEDS: ISOSORBIDE MONONITRATE ER 30 MG TAB.ER.24H PO SCH (12:39)
[2023-04-08] MEDS: RIVAROXABAN 20 MG TAB PO SCH (13:34)
--- NOTE | 2023-04-08 16:06 | P.PN ---
Subjective Progress Note Date: 04/08/23 56-year-old pleasant male came in the with complaints of chest pain radiating to the left arm and neck area. Patient does have history of cocaine abuse last cocaine use was 2 days ago but patient started having chest pain today morning. Patient was is coming from [facility]. Patient does have history of coronary artery disease CABG in the past stents 3 times in the past recent one less than 1 year ago. Patient does have history of atrial fibrillation on 0 alto as per the patient patient does have history of heart failure denied any shortness of breath, orthopnea proximal nocturnal dyspnea. Patient was given aspirin and nitroglycerin with the some improvement in the pain patient pain is exertional associated lightheadedness denied any diaphoresis not associated with food nonpleuritic in nature. Patient is supposed to get a stress test at [facility] where his K was none of the records are available in the system at this time. EKG showed a sinus rhythm with nonspecific ST-T wave changes. 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 04/08/2023 Patient is evaluated today, continues to report mild left sided chest pain and radiation into the back shoulder blade. Cardiology is pending reports [place] [facility] [place] with cardiology and had a stress test completed last week. Echocardiogram comes back with EF 55-60%, mild biatrial dilatation. Review of Systems Constitutional: Denied any fatigue denied any fever. Cardio vascular: denied any chest pain, palpitations Gastrointestinal: denied any nausea, vomiting, diarrhea Pulmonary: Denied any shortness of breath cough Neurologic denied any new focal deficits All inpatient medications were reviewed and appropriate changes in these medications as dictated in the interval history and assessment and plan. PHYSICAL EXAMINATION: GENERAL: The patient is alert and oriented x3, not in any acute distress. Well developed, well nourished. HEENT: Pupils are round and equally reacting to light. EOMI. No scleral icterus. No conjunctival pallor. Normocephalic, atraumatic. No pharyngeal erythema. No thyromegaly. CARDIOVASCULAR: S1 and S2 present. No murmurs, rubs, or gallops. PULMONARY: Chest is clear to auscultation, no wheezing or crackles. ABDOMEN: Soft, nontender, nondistended, normoactive bowel sounds. No palpable organomegaly. MUSCULOSKELETAL: No joint swelling or deformity. EXTREMITIES: No cyanosis, clubbing, or pedal edema. NEUROLOGICAL: Gross neurological examination did not reveal any focal deficits. SKIN: No rashes. Assessment and plan -Chest pain possibly of unstable angina. Troponin negative patient had stress test last week reports are being obtained. Cardiology has started the patient on nitropaste. -History of coronary artery disease and CABG in the past patient will be resumed on Plavix xarelto has been resumed off IV heparin. -History of congestive heart failure normal LV function -Atrial fibrillation proximal presently sinus rhythm -cocaine use patient wanted to quit cocaine and didn't use cocaine for last couple days cocaine may not be contributing to his chest pain -Hypertension -Diabetes Mellitus type resumed on home regimen with cele luis -Chronic kidney disease stage 3 -Hx of DVT -Hx of gastroesophageal reflux disease -Former history of smoking -Anxiety/Bipolar/Depression/Add DVT prophylaxis: Resumed on xarelto Full Code The impression and plan of care has been dictated by Blanche Villasenor Nurse Practitioner as directed. Dr. Walker MD I have performed a history and physical examination and medical decision making of this patient, discussed the same with the dictator, and agree with the dictators assessment and plan as written, documented as a scribe. Based on total visit time, I have performed more than 50% of this visit. Objective - Vital Signs Vital signs: Vital Signs Temp 97.6 F 04/08/23 07:00 Pulse 57 L 04/08/23 11:48 Resp 16 04/08/23 11:48 BP 126/71 04/08/23 11:48 Pulse Ox 98 04/08/23 11:48 FiO2 21 04/08/23 08:31 Intake & Output 04/07/23 04/08/23 04/08/23 18:59 06:59 18:59 Intake Total 150.3 240 Output Total 750 Balance -599.7 240 Weight 97.069 kg 97.069 kg Intake: Intake, IV Titration 150.3 Amount Heparin Sod,Pork in 0.45% 150.3 NaCl 25,000 unit In 0.45 % NaCl 1 250ml.bag @ 10. 302 UNITS/KG/HR 10 mls/hr IV .Q24H [facility] Rx#: [id number] Oral 240 Output: Urine 750 Other: # Voids 1 - Labs CBC & Chem 7: 04/08/23 02:19 04/08/23 02:19 Labs: Abnormal Lab Results - Last 24 Hours (Table) 04/07/23 04/07/23 04/07/23 Range/Units 13:00 17:26 20:03 WBC (3.8-10.6) k/uL APTT 41.1 H 34.4 H (22.0-30.0) sec Glucose (74-99) mg/dL POC Glucose (mg/dL) (70-110) mg/dL Urine Opiates Screen Positive A (Negative) 04/07/23 04/08/23 04/08/23 Range/Units 21:11 02:19 02:19 WBC 3.6 L (3.8-10.6) k/uL APTT (22.0-30.0) sec Glucose 119 H (74-99) mg/dL POC Glucose (mg/dL) 113 H (70-110) mg/dL Urine Opiates Screen (Negative) 04/08/23 04/08/23 04/08/23 Range/Units 02:19 06:06 12:23 WBC (3.8-10.6) k/uL APTT 58.4 H (22.0-30.0) sec Glucose (74-99) mg/dL POC Glucose (mg/dL) 119 H 166 H (70-110) mg/dL Urine Opiates Screen (Negative) Assessment and Plan Time with Patient: Less than 30
[2023-04-08 17:35] LABS: Glucose,Whole Blood 109 mg/dL (70-110)
[2023-04-08] MEDS: ATORVASTATIN 40 MG TAB PO SCH (20:10)
[2023-04-08 20:47] LABS: Glucose,Whole Blood 206 mg/dL (70-110)
[2023-04-08] MEDS: INSULIN DETEMIR (LEVEMIR) 100 UNIT/ML SYR SQ SCH (21:29)
[2023-04-09] MEDS: carvediloL 3.125 MG TAB PO SCH ×2 (05:44→18:01)
[2023-04-09 05:50] LABS: Glucose,Whole Blood 114 mg/dL (70-110)
[2023-04-09] MEDS: SYMBICORT 80-4.5 MCG INHALER INHALATION SCH ×2 (08:36→18:29)
[2023-04-09] MEDS: CLOPIDOGREL 75 MG TAB PO SCH (08:54)
[2023-04-09] MEDS: ISOSORBIDE MONONITRATE ER 30 MG TAB.ER.24H PO SCH (08:54)
[2023-04-09] MEDS: FAMOTIDINE 20 MG TAB PO SCH ×2 (08:54→19:51)
[2023-04-09] MEDS: LOSARTAN 50 MG TAB PO SCH (08:55)
[2023-04-09] MEDS: DAPAGLIFLOZIN PROPANEDIOL 5 MG TABLET PO SCH (08:55)
[2023-04-09] MEDS ORDERED: ACETAMINOPHEN TAB 500 MG TAB PO STA (10:19)
[2023-04-09 12:19] LABS: Glucose,Whole Blood 126 mg/dL (70-110)
--- NOTE | 2023-04-09 13:02 | P.PN ---
Subjective Progress Note Date: 04/09/23 History of present illness: This is a 57-year-old male with past medical history coronary artery disease wi th 3 vessel CABG in November 2021 followed by stenting done earlier this year for total of 4 stents--details are not available, hypertension, hyperlipidemia, paroxysmal atrial fibrillation, diabetes mellitus insulin requiring, cocaine abuse. We have been asked to evaluate patient for chest pain. Patient resides in [facility] and comes to [facility] from [place] [facility]. 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 Patient states he has problem with cocaine and admitted himself to [place] [facility]. His last cocaine use was 3 days ago and he denies having any chest pain with use. He has a history of tobacco use and quit. Patient presented with complaints of left-sided sharp chest pain that started yesterday and is constant. It is worse with deep breathing. He also states that most back of his arm and the back of his neck. It is worse with movement as well. He also complains of cough and shortness of breath with lightheadedness and dizziness. He states he has been taking all of his medications as directed. EKG sinus rhythm with LVH Chest x-ray: No acute process WBC 3.6, hemoglobin 13.4. INR 0.9. Electrolytes and renal function normal. Blood sugar 119. Troponin negative 3. Urine drug screen positive for opiates. Home cardiac medications: Amlodipine 10 mg daily, aspirin 325 mg when necessary, atorvastatin 40 mg at bedtime, Coreg 3.125 mg twice daily, Plavix 75 mg daily, losartan 100 mg daily, Nitrostat as needed, Xarelto 20 mg daily, patient also on Jardiance 10 mg daily. Echocardiogram performed 04/07 reveals EF 55-60%, moderate concentric left hypertrophy, no obvious regional wall motion abnormality. RVSP not elevated, mild biatrial dilatation. 04/09/23 We did receive some reports however these were from 11/06/22 stress test which revealed normal myocardial perfusion study showing no inducible defects, no reversible ischemia noted. No other records available to review at this time. He does report that he is having intermittent chest pain while laying in bed, nothing makes it better or worse. He was started on Imdur and reports having a headache from this. Review Of Systems: At the time of my exam: CONSTITUTIONAL: Denies fever or chills. CARDIOVASCULAR: Denies chest pain, Denies shortness of breath, no orthopnea, PND or palpitations. RESPIRATORY: Denies cough. GASTROINTESTINAL: Denies abdominal pain, diarrhea, constipation, nausea or vom iting. MUSCULOSKELETAL: Denies myalgias. NEUROLOGIC: Denies numbness, tingling or weakness. ENDOCRINE: Denies fatigue, weight change, polydipsia or polyurina. GENITOURINARY: Denies burning, hematuria or urgency with micturation. HEMATOLOGIC: Denies history of anemia or bleeding. Physical examination: Gen: This is a 57-year-old black male resting in bed in no acute distress VS: reviewed HEENT: Head is atraumatic, normocephalic. Pupils equal, round. Sclerae is anicteric. NECK: Supple. No JVD. LUNGS: Clear to auscultation. No wheezes or rhonchi. No intercostal retractions. HEART: Regular rate and rhythm. Fixed S2. No murmur. ABDOMEN: Soft No tenderness. EXTREMITIES: No pedal edema. No calf tenderness. NEUROLOGICAL: Patient is awake, alert and oriented x3. Assessment: Chest pain, acute coronary syndrome ruled out Coronary artery disease status post 3 vessel CABG and 4 stents Hypertension Hyperlipidemia Paroxysmal atrial fibrillation Diabetes mellitus insulin requiring Cocaine abuse Plan: Reviewed reports available with negative stress test from October 2022. Obtain results of stress test performed last week. Recommend Tylenol for headache with Imdur. Continue with current regimen. Advised cessation of drug use. If patient remains chest pain free okay to discharge from a cardiology standpoint with outpatient follow-up in 1-2 weeks. Nurse practitioner note has been reviewed, I agree with documented findings and plan of care. Patient was seen and examined. Objective - Vital Signs Vital signs: Vital Signs Temp 97.9 F 04/09/23 07:00 Pulse 61 04/09/23 07:00 Resp 16 04/09/23 07:00 BP 132/73 04/09/23 07:00 Pulse Ox 97 04/09/23 08:38 FiO2 21 04/08/23 08:31 Intake & Output 04/08/23 04/09/23 04/09/23 18:59 06:59 18:59 Intake Total 598 Output Total 650 500 Balance -52 -500 Intake: Oral 598 Output: Urine 650 500 Other: Voiding Method Toilet Urinal # Voids 2 - Labs CBC & Chem 7: 04/08/23 02:19 04/08/23 02:19 Labs: Abnormal Lab Results - Last 24 Hours (Table) 04/08/23 04/09/23 04/09/23 Range/Units 20:45 05:47 12:18 POC Glucose (mg/dL) 206 H 114 H 126 H (70-110) mg/dL
[2023-04-09 17:32] LABS: Glucose,Whole Blood 110 mg/dL (70-110)
[2023-04-09] MEDS: RIVAROXABAN 20 MG TAB PO SCH (18:01)
[2023-04-09] MEDS: ATORVASTATIN 40 MG TAB PO SCH (19:51)
[2023-04-09 20:31] LABS: Glucose,Whole Blood 171 mg/dL (70-110)
[2023-04-09] MEDS: INSULIN DETEMIR (LEVEMIR) 100 UNIT/ML SYR SQ SCH (20:31)
[2023-04-10 07:24] LABS: Glucose,Whole Blood 97 mg/dL (70-110)
[2023-04-10 08:11] VITALS: BP 110/68; PULSE 51; RESP 18; TEMP 97.7
[2023-04-10] MEDS: carvediloL 3.125 MG TAB PO SCH (08:35)
[2023-04-10] MEDS: LOSARTAN 50 MG TAB PO SCH (08:36)
[2023-04-10] MEDS: FAMOTIDINE 20 MG TAB PO SCH (08:36)
[2023-04-10] MEDS: DAPAGLIFLOZIN PROPANEDIOL 5 MG TABLET PO SCH (08:36)
[2023-04-10] MEDS: ISOSORBIDE MONONITRATE ER 30 MG TAB.ER.24H PO SCH (08:36)
[2023-04-10] MEDS: CLOPIDOGREL 75 MG TAB PO SCH (08:37)
[2023-04-10] MEDS: SYMBICORT 80-4.5 MCG INHALER INHALATION SCH (08:49)
[2023-04-10] MEDS ORDERED: ACETAMINOPHEN TAB 325 MG TAB PO PRN (09:43)
--- NOTE | 2023-04-10 11:25 | P.PN ---
Subjective Progress Note Date: 04/10/23 History of present illness: This is a 57-year-old male with past medical history coronary artery disease wi th 3 vessel CABG in November 2021 followed by stenting done earlier this year for total of 4 stents--details are not available, hypertension, hyperlipidemia, paroxysmal atrial fibrillation, diabetes mellitus insulin requiring, cocaine abuse. We have been asked to evaluate patient for chest pain. Patient resides in [facility] and comes to [facility] from [place] [facility]. Patient gives history that he has a post form remover at [facility], Dr. 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 Patient states he has problem with cocaine and admitted himself to [place] [facility]. His last cocaine use was 3 days ago and he denies having any chest pain with use. He has a history of tobacco use and quit. Patient presented with complaints of left-sided sharp chest pain that started yesterday and is constant. It is worse with deep breathing. He also states that most back of his arm and the back of his neck. It is worse with movement as well. He also complains of cough and shortness of breath with lightheadedness and dizziness. He states he has been taking all of his medications as directed. EKG sinus rhythm with LVH Chest x-ray: No acute process WBC 3.6, hemoglobin 13.4. INR 0.9. Electrolytes and renal function normal. Blood sugar 119. Troponin negative 3. Urine drug screen positive for opiates. Home cardiac medications: Amlodipine 10 mg daily, aspirin 325 mg when necessary, atorvastatin 40 mg at bedtime, Coreg 3.125 mg twice daily, Plavix 75 mg daily, losartan 100 mg daily, Nitrostat as needed, Xarelto 20 mg daily, patient also on Jardiance 10 mg daily. Echocardiogram performed 04/07 reveals EF 55-60%, moderate concentric left hypertrophy, no obvious regional wall motion abnormality. RVSP not elevated, mild biatrial dilatation. 04/09/23 We did receive some reports however these were from 11/06/22 stress test which revealed normal myocardial perfusion study showing no inducible defects, no reversible ischemia noted. No other records available to review at this time. He does report that he is having intermittent chest pain while laying in bed, nothing makes it better or worse. He was started on Imdur and reports having a headache from this. 04/10/2023 He reports feeling much better today. No chest pain or pressure. No shortness of breath, dizziness, or headaches. Review Of Systems: At the time of my exam: CONSTITUTIONAL: Denies fever or chills. CARDIOVASCULAR: Denies chest pain, Denies shortness of breath, no orthopnea, PND or palpitations. RESPIRATORY: Denies cough. GASTROINTESTINAL: Denies abdominal pain, diarrhea, constipation, nausea or vomiting. MUSCULOSKELETAL: Denies myalgias. NEUROLOGIC: Denies numbness, tingling or weakness. ENDOCRINE: Denies fatigue, weight change, polydipsia or polyurina. GENITOURINARY: Denies burning, hematuria or urgency with micturation. HEMATOLOGIC: Denies history of anemia or bleeding. Physical examination: Gen: This is a 57-year-old black male resting in bed in no acute distress VS: reviewed HEENT: Head is atraumatic, normocephalic. Pupils equal, round. Sclerae is anicteric. NECK: Supple. No JVD. LUNGS: Clear to auscultation. No wheezes or rhonchi. No intercostal retractions. HEART: Regular rate and rhythm. Fixed S2. No murmur. ABDOMEN: Soft No tenderness. EXTREMITIES: No pedal edema. No calf tenderness. NEUROLOGICAL: Patient is awake, alert and oriented x3. Assessment: Chest pain, acute coronary syndrome ruled out Coronary artery disease status post 3 vessel CABG and 4 stents Hypertension Hyperlipidemia Paroxysmal atrial fibrillation Diabetes mellitus insulin requiring Cocaine abuse Plan: He is feeling better symptom sanchez. No further cardiac work up indicated at this time. Continue with current regimen including Imdur. Advised cessation of drug use. Okay to discharge from a cardiology standpoint with outpatient follow-up in 1-2 weeks. Nurse practitioner note has been reviewed, I agree with documented findings and plan of care. Patient was seen and examined. Objective - Vital Signs Vital signs: Vital Signs Temp 97.7 F 04/10/23 07:00 Pulse 51 L 04/10/23 07:00 Resp 18 04/10/23 07:00 BP 110/68 04/10/23 07:00 Pulse Ox 98 04/10/23 07:00 FiO2 21 04/08/23 08:31 Intake & Output 04/09/23 04/10/23 04/10/23 18:59 06:59 18:59 Output Total 500 800 Balance -500 -800 Output: Urine 500 800 Other: Voiding Method Urinal Urinal Urinal # Voids 1 - Labs CBC & Chem 7: 04/08/23 02:19 04/08/23 02:19 Labs: Abnormal Lab Results - Last 24 Hours (Table) 04/09/23 04/09/23 Range/Units 12:18 20:30 POC Glucose (mg/dL) 126 H 171 H (70-110) mg/dL
[2023-04-10 12:29] LABS: Glucose,Whole Blood 101 mg/dL (70-110)
--- NOTE | 2023-04-12 06:58 | P.PN ---
Subjective Progress Note Date: 04/09/23 (\) 56-year-old pleasant male came in the with complaints of chest pain radiating to the left arm and neck area. Patient does have history of cocaine abuse last cocaine use was 2 days ago but patient started having chest pain today morning. Patient was is coming from [facility]. Patient does have history of coronary artery disease CABG in the past stents 3 times in the past recent one less than 1 year ago. Patient does have history of atrial fibrillation on 0 alto as per the patient patient does have history of heart failure denied any shortness of breath, orthopnea proximal nocturnal dyspnea. Patient was given aspirin and nitroglycerin with the some improvement in the pain patient pain is exertional associated lightheadedness denied any diaphoresis not associated with food nonpleuritic in nature. Patient is supposed to get a stress test at [facility] where his K was none of the records are available in the system at this time. EKG showed a sinus rhythm with nonspecific ST-T wave changes. First set of troponin is negative patient was also told he still has some occlusions in the coronary arteries by his spray operator at [facility]. 04/08/2023 Patient is evaluated today, continues to report mild left sided chest pain and radiation into the back shoulder blade. Cardiology is pending reports from the [facility] where he follows with cardiology and had a stress test completed last week. Echocardiogram comes back with EF 55-60%, mild biatrial dilatation. 04/09/2023 Patient is seen in follow up. We are still pending most current reports from [facility] regarding his recent stress test. He does have one come in from 11/06/22 stress test which revealed normal myocardial perfusion study showing no inducible defects, no reversible ischemia noted. No other records available to review at this time. He does continue to report intermitte chest pain. He is currently on imdur and headache has improved. He will be monitored one more night. Review of Systems Constitutional: Denied any fatigue denied any fever. Cardio vascular: denied any chest pain, palpitations Gastrointestinal: denied any nausea, vomiting, diarrhea Pulmonary: Denied any shortness of breath cough Neurologic denied any new focal deficits All inpatient medications were reviewed and appropriate changes in these medications as dictated in the interval history and assessment and plan. PHYSICAL EXAMINATION: GENERAL: The patient is alert and oriented x3, not in any acute distress. Well developed, well nourished. HEENT: Pupils are round and equally reacting to light. EOMI. No scleral icterus. No conjunctival pallor. Normocephalic, atraumatic. No pharyngeal erythema. No thyromegaly. CARDIOVASCULAR: S1 and S2 present. No murmurs, rubs, or gallops. PULMONARY: Chest is clear to auscultation, no wheezing or crackles. ABDOMEN: Soft, nontender, nondistended, normoactive bowel sounds. No palpable organomegaly. MUSCULOSKELETAL: No joint swelling or deformity. EXTREMITIES: No cyanosis, clubbing, or pedal edema. NEUROLOGICAL: Gross neurological examination did not reveal any focal deficits. SKIN: No rashes. Assessment and plan -Chest pain possibly of unstable angina. Troponin negative patient had stress test last week reports are being obtained. Cardiology has started the patient on nitropaste. -History of coronary artery disease and CABG in the past patient will be resumed on Plavix xarelto has been resumed off IV heparin. -History of congestive heart failure normal LV function -Atrial fibrillation proximal presently sinus rhythm -cocaine use patient wanted to quit cocaine and didn't use cocaine for last couple days cocaine may not be contributing to his chest pain -Hypertension -Diabetes Mellitus type resumed on home regimen with accuchecks achs -Chronic kidney disease stage 3 -Hx of DVT -Hx of gastroesophageal reflux disease -Former history of smoking -Anxiety/Bipolar/Depression/Add DVT prophylaxis: Resumed on xarelto Full Code The impression and plan of care has been dictated by Blanche Villasenor, Nurse Practitioner as directed. Dr. Walker MD I have performed a history and physical examination and medical decision making of this patient, discussed the same with the dictator, and agree with the dictators assessment and plan as written, documented as a scribe. Based on total visit time, I have performed more than 50% of this visit. Objective - Vital Signs Vital signs: Vital Signs Temp 98.1 F 04/09/23 15:00 Pulse 56 L 04/09/23 15:00 Resp 16 04/09/23 15:00 BP 117/64 04/09/23 15:00 Pulse Ox 99 04/09/23 15:00 FiO2 21 04/08/23 08:31 Intake & Output 04/08/23 04/09/23 04/09/23 18:59 06:59 18:59 Intake Total 598 Output Total 650 500 500 Balance -52 -500 -500 Intake: Oral 598 Output: Urine 650 500 500 Other: Voiding Method Toilet Urinal # Voids 2 - Labs CBC & Chem 7: 04/08/23 02:19 04/08/23 02:19 Labs: Abnormal Lab Results - Last 24 Hours (Table) 04/08/23 04/09/23 04/09/23 Range/Units 20:45 05:47 12:18 POC Glucose (mg/dL) 206 H 114 H 126 H (70-110) mg/dL Assessment and Plan Time with Patient: Less than 30
--- NOTE | 2023-04-12 07:03 | P.DS ---
Providers Date of admission: 04/07/23 10:59 Attending physician: Purvi Llanes Primary care physician: Stated None Hospital Course: Final Diagnosis -Chest pain possibly of unstable angina. Troponin negative. Unable to obtain reports from recent stress test. -History of coronary artery disease and CABG in the past patient will be resumed on Plavix xarelto -History of congestive heart failure normal LV function -Atrial fibrillation proximal presently sinus rhythm -cocaine use patient wanted to quit cocaine and didn't use cocaine for last couple days cocaine may not be contributing to his chest pain -Hypertension -Diabetes Mellitus type resumed on home regimen with accuchecks achs -Chronic kidney disease stage 3 -Hx of DVT -Hx of gastroesophageal reflux disease -Former history of smoking -Anxiety/Bipolar/Depression/Add DVT prophylaxis: Resumed on xarelto Discharge Disposition Patient is stable for discharge with overall guarded prognosis due to continue substance abuse with cocaine and medical noncompliance. Patient has been started on imdur for the acute chest pain and monitored and currently is chest pain free. Cardiology recommending discharge and office follow up. Patient has been taken off amlodipinee. He will be discharge. He has been educated on the importance of stopping cocaine. Hospital Course 56-year-old pleasant male came in the with complaints of chest pain radiating to the left arm and neck area. Patient does have history of cocaine abuse last cocaine use was 2 days ago but patient started having chest pain today morning. Patient was is coming from [facility]. Patient does have history of coronary artery disease CABG in the past stents 3 times in the past recent one less than 1 year ago. Patient does have history of atrial fibrillation on 0 alto as per the patient patient does have history of heart failure denied any shortness of breath, orthopnea proximal nocturnal dyspnea. Patient was given aspirin and nitroglycerin with the some improvement in the pain patient pain is exertional associated lightheadedness denied any diaphoresis not associated with food nonpleuritic in nature. Patient is supposed to get a stress test at [facility] where his K was none of the records are available in the system at this time. EKG showed a sinus rhythm with nonspecific ST-T wave changes. First set of troponin is negative patient was also told he still has some occlusions in the coronary arteries by his dentures lab technician at [facility]. We were unable to obtain the most recent results. Did have one come in from 11/06/22 stress test which revealed normal myocardial perfusion study showing no inducible defects, no reversible ischemia noted. No other records available to review at this time. Echocardiogram comes back with EF 55-60%, mild biatrial dilatation. He was evaluated by dentures lab technician and started on imdur and was monitored. His chest pain resolved. No shortness of breath. No focal neurological deficits. He has been discharged to follow up with his known dentures lab technician and PCP. Please see medication reconciliation for a list of current medications. Thank you for allowing us to participate in the care of this patient. The impression and plan of care has been dictated by Blanche Villasenor, Nurse Practitioner as directed. Dr. Walker MD I have performed a history and physical examination and medical decision making of this patient, discussed the same with the dictator, and agree with the dictators assessment and plan as written, documented as a scribe. Based on total visit time, I have performed more than 50% of this visit. Patient Condition at Discharge: Stable Plan - Discharge Summary Discharge Rx Participant: No New Discharge Prescriptions: New Isosorbide Mononitrate ER [Imdur] 30 mg PO DAILY #30 tab Continue Fluticasone/Vilanterol [Breo Ellipta 100-25 Mcg Inhaler] 1 puff INHALATION RT-DAILY Atorvastatin Calcium [Lipitor] 40 mg PO HS Ammonium Lactate Lotion [Lac-Hydrin 12% Lotion] 1 applic TOPICAL BID Aspirin EC [Ecotrin] 325 mg PO ONCE PRN PRN Reason: Chest Pain Albuterol Inhaler [Ventolin Hfa Inhaler] 2 puff INHALATION RT-QID PRN #1 each PRN Reason: Shortness Of Breath Nitroglycerin Sl Tabs [Nitrostat] 0.4 mg SUBLINGUAL ONCE PRN PRN Reason: Chest Pain Rivaroxaban [Xarelto] 20 mg PO DAILY Losartan Potassium 100 mg PO DAILY Insulin Glargine,Hum.rec.anlog [Lantus Solostar Pen] 8 units SQ HS Famotidine 20 mg PO BID Empagliflozin [Jardiance] 10 mg PO DAILY Clopidogrel [Plavix] 75 mg PO DAILY carvediloL [Coreg] 3.125 mg PO BID-W/MEALS Discontinued amLODIPine [Norvasc] 10 mg PO DAILY Discharge Medication List Ammonium Lactate Lotion [Lac-Hydrin 12% Lotion] 1 applic TOPICAL BID 04/07/23 [History] Aspirin EC [Ecotrin] 325 mg PO ONCE PRN 04/07/23 [History] Atorvastatin Calcium [Lipitor] 40 mg PO HS 04/07/23 [History] Clopidogrel [Plavix] 75 mg PO DAILY 04/07/23 [History] Empagliflozin [Jardiance] 10 mg PO DAILY 04/07/23 [History] Famotidine 20 mg PO BID 04/07/23 [History] Fluticasone/Vilanterol [Breo Ellipta 100-25 Mcg Inhaler] 1 puff INHALATION RT- DAILY 04/07/23 [History] Insulin Glargine,Hum.rec.anlog [Lantus Solostar Pen] 8 units SQ HS 04/07/23 [History] Losartan Potassium 100 mg PO DAILY 04/07/23 [History] Nitroglycerin Sl Tabs [Nitrostat] 0.4 mg SUBLINGUAL ONCE PRN 04/07/23 [History] Rivaroxaban [Xarelto] 20 mg PO DAILY 04/07/23 [History] carvediloL [Coreg] 3.125 mg PO BID-W/MEALS 04/07/23 [History] Albuterol Inhaler [Ventolin Hfa Inhaler] 2 puff INHALATION RT-QID PRN #1 each 04/10/23 [Rx] Isosorbide Mononitrate ER [Imdur] 30 mg PO DAILY #30 tab 04/10/23 [Rx] Follow up Appointment(s)/Referral(s): None,Stated [Primary Care Provider] - 1-2 days Activity/Diet/Wound Care/Special Instructions: Follow up with your PCP and dentures lab technician. Discharge Disposition: HOME SELF-CARE
== END 2023-04-10 14:47 | disposition home or self-care (01) ==
LOC: EC 08:58 → 6NMEDSUR 10:59
PROVIDERS: ADMIT Hospitalist; ATTEND Hospitalist
DX: R07.89 Other chest pain (principal); R42 Dizziness and giddiness; R51.9 Headache, unspecified; I25.10 Atherosclerotic heart disease of native coronary artery without angina pectoris; I13.0 Hypertensive heart and chronic kidney disease with heart failure and stage 1 through stage 4 chronic kidney disease, or unspecified chronic kidney disease; N18.30 Chronic kidney disease, stage 3 unspecified; E11.22 Type 2 diabetes mellitus with diabetic chronic kidney disease; I50.9 Heart failure, unspecified; I48.0 Paroxysmal atrial fibrillation; F14.10 Cocaine abuse, uncomplicated; K21.9 Gastro-esophageal reflux disease without esophagitis; F31.9 Bipolar disorder, unspecified; F41.9 Anxiety disorder, unspecified; E78.5 Hyperlipidemia, unspecified; I25.2 Old myocardial infarction; Z91.199 Patient's noncompliance with other medical treatment and regimen due to unspecified reason; Z86.718 Personal history of other venous thrombosis and embolism; Z79.01 Long term (current) use of anticoagulants; Z79.84 Long term (current) use of oral hypoglycemic drugs; Z79.02 Long term (current) use of antithrombotics/antiplatelets; Z95.1 Presence of aortocoronary bypass graft; Z79.899 Other long term (current) drug therapy; Z95.5 Presence of coronary angioplasty implant and graft; Z83.3 Family history of diabetes mellitus; Z82.49 Family history of ischemic heart disease and other diseases of the circulatory system
CPT/HCPCS: 96376 ×2; 96366 ×3; 96361; 96365; 96375; 99285; 36415; 94640 ×5; 94760 ×2; 93005; 93306; 80053; 80048; 83690; 83735; 84484; 85025 ×2; 85610 ×2; 85730 ×3; 80306; 71046; G0378 ×4; J2270; J1644 ×2